=== PATIENT | female | born 1965 | race Caucasian/White ===

== ENCOUNTER 2017-07-15 08:27 | Day surgery (SDC) | payer OTHER ==
[~2017-07-15] VITALS: Ht 158.8 cm; Wt 68.4 kg
[~2017-07-15 08:27] MED LIST: ASPI81TA3 PO; ATOR20TA38 PO; NIT4 SL
[2017-07-15 09:54] VITALS: Ht 158.8 cm; Wt 68.4 kg
[2017-07-15 10:07] VITALS: BP 109/76; PULSE 59; RESP 18
[2017-07-15] MEDS ORDERED: LIDOCAINE 4% SOLUTION 50 ML BTL ONE (10:13)
--- NOTE | 2017-07-15 11:06 | OPPN ---
Date/Time of Note Date/Time of Note DATE: 07/15/17 TIME: 11:00 Proc Note GI Procedure Date 07/15/17 Pre-procedure Diagnosis chronic heart burn rectal bleeding Post-procedure Diagnosis gerd ulceration at gej diverticulosis hemorrhoids Procedure Performed: Endoscopy, Colonoscopy Surgeon see signature line Lead Producer none Anesthesia Type: moderate sedation Tourniquet Time none EBL none Transfusion required none Biopsy 1: gej stomach Grafts/Implants none Tubes/Drains none Complication(s) none Pt Condition post procedure: stable Disposition: home Indications: lower GI bleed, reflux Sx despite therapy Operative\Procedure Findings gerd with ulceration gastritis diverticulosis hemorrhoids Procedure Description egd gerdcwith ulceration gastritis diverticulosis hemorrhoids pl;an ppi GUILLAUME KATZ MD Jul 15, 2017 11:06
[2017-07-15 11:35] VITALS: BP 91/64; RESP 20
--- NOTE | 2017-07-15 11:58 | GILP ---
DATE OF PROCEDURE: 07/15/2017 PROCEDURE PERFORMED: Esophagogastroduodenoscopy. PREOPERATIVE DIAGNOSIS: A patient presenting with history of chronic abdominal discomfort, chronic heartburn, rule out peptic ulcer disease, and gastroesophageal reflux disease. POSTOP DIAGNOSIS: Hypertrophic ulcer at the GE junction was noted. A hiatal hernia was noted. Mild gastritis was noted. Biopsies were obtained. DESCRIPTION OF PROCEDURE: After the informed written consent was obtained, the patient was asked to lie on the left lateral side. Intravenous anesthesia was given, which included 3 mg of Versed and 50 mcg of fentanyl. When the patient became somnolent, Olympus video upper endoscope was introduced into the oropharynx and then into the esophagus. There was evidence of small hiatal hernia noted. The gastroesophageal junction showed evidence of a hypertrophic mucosa with ulceration. Multiple biopsies were obtained to rule out malignancy. Endoscope at this time was advanced into the stomach. The entire stomach showed mild gastritis in the antrum. Biopsy was done from the antrum, the lesser curvature, and the fundus to rule out H pylori infection. Scope at this time was advanced into the duodenum. The entire duodenum appeared perfectly normal with no mucosal abnormality. Endoscope at this time was withdrawn and the procedure was terminated. PLAN: Recommend Nexium 40 mg a day for eight weeks and meanwhile, wait for the pathology report. Dictated By: Tony Kiran MD /jose/kalee /Document#: [id number]
--- NOTE | 2017-07-15 12:04 | GILP ---
DATE OF PROCEDURE: 07/15/2017 SURGEON: Tony Kiran MD. PROCEDURE PERFORMED: Colonoscopy. PREOPERATIVE DIAGNOSIS: The patient presenting with history of rectal bleeding, rule out colorectal neoplasm, AV malformation, diverticulosis. POSTOP DIAGNOSES: 1. Moderate degree of diverticulosis. 2. Minimal degree of internal and external hemorrhoids. DESCRIPTION OF PROCEDURE: After informed written consent is obtained. Patient was also in the left lateral side. Intravenous anesthesia was given, which included fentanyl and Versed. When the patient became somnolent, the Olympus video colonoscope was introduced into the rectum. The scope was advanced all the way to the cecum. Diverticulosis noted to be scattered along the colon, but there were minimal bleeding, no neoplasm. No infection noted. On the way out further evaluation was carried out. On retroflexion, minimal internal hemorrhoids and skin tags were noted. On the way out minimal external hemorrhoids were noted and the procedure was terminated. PLAN: Recommend high-fiber diet and Anusol HC suppositories, 1 into the rectum for 10 days if the bleeding were to occur again. Dictated By: Tony Kiran MD /jose/jose /Document#: [id number] CC: Tony Kiran MD;*[facility]*
[2017-07-15] MEDS ORDERED: FENTAnyl 50 MCG/ML VIAL ONE (12:31)
[2017-07-15] MEDS ORDERED: MIDAZOLAM 1 MG/ML 2 ML INJ ONE ×3 (12:31→12:32)
== END 2017-07-15 11:36 | disposition home or self-care (01) ==
LOC: GIL 08:27
PROVIDERS: ATTEND Internal Medicine Gastroenterology
DX: K64.8 Other hemorrhoids (principal); K57.30 Diverticulosis of large intestine without perforation or abscess without bleeding; K64.4 Residual hemorrhoidal skin tags; K29.70 Gastritis, unspecified, without bleeding; K22.10 Ulcer of esophagus without bleeding; K44.9 Diaphragmatic hernia without obstruction or gangrene; K62.5 Hemorrhage of anus and rectum
CPT/HCPCS: 43239; 45378; 88305; 88312; 88313; J2250; J3010; Z7610

== ENCOUNTER 2019-02-22 08:48 | Day surgery (SDC) | payer OTHER ==
[~2019-02-22] VITALS: Ht 157.5 cm; Wt 67.4 kg
[~2019-02-22 08:48] MED LIST changes: -ASPI81TA3 PO; -NIT4 SL
[2019-02-22 10:13] VITALS: Ht 157.5 cm; Wt 67.4 kg
[2019-02-22] MEDS ORDERED: OMEP20CA16 PO (10:18)
[2019-02-22 11:33] VITALS: BP 105/71; PULSE 69; RESP 18
[2019-02-22] MEDS ORDERED: MIDAZOLAM 1 MG/ML 2 ML INJ ONE ×3 (12:30→12:31)
[2019-02-22] MEDS ORDERED: FENTAnyl 50 MCG/ML VIAL ONE (12:30)
== END 2019-02-22 14:58 | disposition home or self-care (01) ==
LOC: GIL 08:48
PROVIDERS: ATTEND Internal Medicine Gastroenterology
DX: Z12.11 Encounter for screening for malignant neoplasm of colon (principal); D12.6 Benign neoplasm of colon, unspecified; K64.8 Other hemorrhoids; K57.30 Diverticulosis of large intestine without perforation or abscess without bleeding; K44.9 Diaphragmatic hernia without obstruction or gangrene; K21.9 Gastro-esophageal reflux disease without esophagitis
CPT/HCPCS: 43239; 45380; 88305; 88312; J2250; J3010; Z7610